=== PATIENT | male | born 1950 | race Caucasian/White ===

== ENCOUNTER → 2020-12-14 14:53 | Outpatient (BNVA) | payer MEDICARE, OTHER, SELFPAY | PROVIDERS: PCP Internal Medicine; Visit Provider Urology | DX: N40.1 Benign prostatic hyperplasia with lower urinary tract symptoms (principal); N39.43 Post-void dribbling; R31.29 Other microscopic hematuria | CPT/HCPCS: 51798; 99212 ==

== ENCOUNTER → 2021-12-13 09:26 | Outpatient (BNVA) | payer MEDICARE, OTHER, SELFPAY | PROVIDERS: PCP Internal Medicine; Visit Provider Urology | DX: N40.1 Benign prostatic hyperplasia with lower urinary tract symptoms (principal); R31.29 Other microscopic hematuria | CPT/HCPCS: 51798; 99212 ==

== ENCOUNTER 2022-09-19 08:43 | Outpatient (REF) | payer MEDICARE, OTHER, SELFPAY ==
--- NOTE | ~2022-09-19 | US_ITS ---
EXAMINATION: US RETROPERITONEAL LIMITED (RENAL ONLY) CLINICAL INFORMATION: Cyst of kidney, acquired. COMPARISON: None available. TECHNIQUE: Real-time imaging of the kidneys. FINDINGS: RIGHT KIDNEY: 11.5 x 6.6 x 6.2 cm (SAG x AP x TRV). The kidney is normal in size, contour, and echogenicity. Renal cortical thickness is normal. No calculi or focal parenchymal lesions. No hydronephrosis. LEFT KIDNEY: 12.7 x 6.1 x 5.1 cm (SAG x AP x TRV). The kidney is normal in size, contour, and echogenicity. Renal cortical thickness is normal. No calculi or focal parenchymal lesions. No hydronephrosis. US/US renal BI IMPRESSION: Normal renal ultrasound.
== END 2022-09-19 08:44 | disposition home or self-care (01) ==
LOC: HO.US 08:43
PROVIDERS: PCP Internal Medicine; Visit Provider Urology
DX: N28.1 Cyst of kidney, acquired (principal)
CPT/HCPCS: 76775

== ENCOUNTER 2022-09-26 08:44 | Outpatient (AMB) | payer MEDICARE, OTHER, SELFPAY ==
--- NOTE | 2022-09-26 08:45 | MHC.OFFVIS ---
Intake Intake Visit Reasons: 6M PVR/US(set) Intake Note: Patient is present for PVR Urology Med: Finasteride, Tamsulosin Antibiotic Allergy:None Blood Thinner: Xarelto [facility] PVR: 0 Allergies No Known Allergies Allergy (Verified 09/26/22 08:47) HPI HPI Comments History of Present Illness Details Ron is a very pleasant male. He is a patient of Dr Landrum. He is seen for the following urologic conditions. - microscopic hematuria - lower urinary tract symptoms - erectile dysfunction UA today negative PVR 0 On Xarelto Happy with current emptying Discussed imaging results with hepatic steatosis Erectile dysfunction Progressive No prior medications Trial on demand tadalafil Lower urinary tract symptoms Weakness of stream with nocturia Current therapy includes combination therapy with finasteride and tamsulosin Current voiding parameters very happy with emptying PSA followed through PCP - 0.4 Microscopic Hematuria:? Substantially improved voiding parameters ?Decreased nocturia ? Microscopic hematuria was diagnosed during?routine UA.? They are here for the?Follow-up evaluation.? Since the last visit the patient has?has not noticed gross hematuria, continues to test postive for microscopic hematuria.? Relevant medical history for?tobacco use, no workplace exposures.? Radiographic imaging:?03/03 , CT IVP - NAD.? Other investigations?03/03 , cytology, normal.? Cystoscopy findings?normal.? Therapeutic plan?6 months with voiding parameters.? [facility] Medical History Benign prostatic hyperplasia with lower urinary tract symptoms Diverticulitis HTN (hypertension) Microscopic hematuria Post-void dribbling Review of Systems Const Denies chills and Denies fever(s) Card Reports no additional complaints and Denies syncope Resp Denies cough GI Denies abdominal pain and Denies heartburn Reports as per HPI and Denies change in libido Neuro Denies syncope Psych Denies change in libido Endo Denies change in libido Physical Exam Const General: cooperative, healthy appearing, comfortable and no acute distress Orientation/consciousness: patient oriented x3 HEENT Face and sinus: Yes normal facial exam Mouth: moist mucous membranes Neck Neck: Yes normal visual inspection, Yes full ROM and Yes trachea midline Chest Chest palpation & inspection: normal inspection of the chest Resp Effort & Inspection: normal respiratory effort, able to speak in complete sentences and no respiratory distress GI Inspection: Yes normal to inspection Back/Spine/Pelvis Cervical Spine: normal cervical lordosis Thoracic/Lumbar Spine: thoracic and lumbar spine normal to inspection Skin General skin exam: no rashes or lesions noted Neuro General: patient oriented x3, gait normal, tone normal and moves all extremities Extrem General: Yes normal to inspection and Yes capillary refill normal Office Procedures Post Void Residual Post Residual Void Post Void Residual (PVR): 0 10130-Huqb Void Residual by ultrasound Results AMB Urinalysis, Automated UA Leukoctes 0 Rebecca/uL Last Edit by Suzie Leonardo [facility] on 09/26/22 08:53 UA Nitrite Negative Last Edit by Suzie Leonardo [facility] on 09/26/22 08:53 UA Urobilinogen 0.2 mg/dL Last Edit by Suzie Leonardo [facility] on 09/26/22 08:53 UA Protein 15 mg/dL Last Edit by Suzie Leonardo [facility] on 09/26/22 08:53 UA pH 5.5 Last Edit by Suzie Leonardo [facility] on 09/26/22 08:53 UA Blood 0 Dannie/uL Last Edit by Suzie Leonardo [facility] on 09/26/22 08:53 UA Specific [place] 1.030 Last Edit by Suzie Leonardo [facility] on 09/26/22 08:53 UA Ketone Negative Last Edit by Suzie Leonardo [facility] on 09/26/22 08:53 UA Bilirubin 0 mg/dL Last Edit by Suzie Leonardo [facility] on 09/26/22 08:53 UA Glucose 0 mg/dL Last Edit by Suzie Leonardo [facility] on 09/26/22 08:53 Results Reviewed Results Reviewed: Laboratory Last Values Urine pH (Auto) 5.5 09/26/22 08:48 Specific [place] (Auto) 1.030 09/26/22 08:48 Urine Protein (Auto) 15 mg/dL 09/26/22 08:48 Glucose (UA)(Auto) 0 mg/dL 09/26/22 08:48 Urine Ketones (Auto) Negative 09/26/22 08:48 Urine Blood (Auto) 0 Dannie/uL 09/26/22 08:48 Urine Nitrite (Auto) Negative 09/26/22 08:48 Urine Bilirubin (Auto) 0 mg/dL 09/26/22 08:48 Urine Urobilinogen (Auto) 0.2 mg/dL 09/26/22 08:48 Leukocyte Esterase (Auto) 0 Rebecca/uL 09/26/22 08:48 Assessment & Plan Assessment & Plan (1) Erectile dysfunction due to arterial insufficiency: Code(s): N52.01 - Erectile dysfunction due to arterial insufficiency (2) Microscopic hematuria: Code(s): R31.29 - Other microscopic hematuria (3) Benign prostatic hyperplasia with lower urinary tract symptoms: Code(s): N40.1 - Benign prostatic hyperplasia with lower urinary tract symptoms Plan Trial tadalafil Three month follow-up tele visit Orders: Orders AMB Urinalysis Automated Today Z13.9 - Encounter for screening, unspecified AMB Post Void Residual by ultrasound Today N40.1 - Benign prostatic hyperplasia with lower urinary tract symptoms Medications: New tadalafil Take on as needed basis 20 mg PO ONCE PRN 30 tabs 0RF sexual activity 30 days N52.01 - Erectile dysfunction due to arterial insufficiency Patient Instructions: Imaging studies, laboratory and physical exam results were discussed and reviewed in detail. No major barriers to patient understanding were identified. An opportunity to ask questions regarding the treatment plan was provided. All questions were answered. The patient expressed understanding and agreement with the above treatment plan. The patient is aware they should contact our office by phone for worsening of their current condition or the appearance of new urologic symptoms. Compliance is encouraged with any medications and followup testing that is ordered. It is a privilege to participate in the urologic care of your patient. If you have any questions or concerns regarding treatment for the above conditions, or other urologic issues, please do not hesitate to contact me. The office telephone contact is [phone]. This note is constructed using voice recognition software. While every effort has been made to ensure accuracy sample checker errors may have been included. Yours sincerely, Dr Aneesh Vivar MD, [facility] - Urology Providers of Expert, Compassionate Care for the Genitourinary System Coding Level of Care Code Est Pt Level 4 (17458) Diagnoses Erectile dysfunction due to arterial insufficiency N52.01 Microscopic hematuria R31.29 Benign prostatic hyperplasia with lower urinary tract symptoms N40.1 CPT Codes Post Residual Void - PVR CPT Code: 42597-Nbqk Void Residual by ultrasound ([id number])
== END 2022-09-26 09:13 | disposition home or self-care (01) ==
PROVIDERS: Visit Provider Urology
DX: N52.01 Erectile dysfunction due to arterial insufficiency (principal); R31.29 Other microscopic hematuria; N40.1 Benign prostatic hyperplasia with lower urinary tract symptoms
CPT/HCPCS: 99214

== ENCOUNTER → 2022-09-26 08:44 | Outpatient (BNVA) | payer MEDICARE, OTHER, SELFPAY | PROVIDERS: Visit Provider Urology | DX: R31.29 Other microscopic hematuria (principal); N40.1 Benign prostatic hyperplasia with lower urinary tract symptoms; R39.12 Poor urinary stream; R35.1 Nocturia; N52.01 Erectile dysfunction due to arterial insufficiency | CPT/HCPCS: 51798; 81003; 99212 ==

== ENCOUNTER 2022-12-29 08:04 | Outpatient (AMB) | payer MEDICARE, OTHER, SELFPAY ==
--- NOTE | 2022-12-29 08:55 | MHC.OFFVIS ---
Intake Intake Visit Reasons: BPH with lower urinary tract symptoms- follow up Intake Note: Patient is Present for Telephone Follow Up For Urology Med: Finasteride, Tadalafil, Tamsulosin Antibiotic Allergy: None Blood Thinner: Xarelto Allergies No Known Allergies Allergy (Verified 12/29/22 08:56) HPI HPI Comments History of Present Illness Details Ron is a very pleasant male. He is a patient of Dr Landrum. He is seen for the following urologic conditions. - microscopic hematuria - lower urinary tract symptoms - erectile dysfunction Telemedicine Evaluation 15 min Consultation 3VR Vinicio Video attempted ED follow-up - moderate benefit Tadalafil trial daily with on demand Erectile dysfunction Progressive No prior medications Trial on demand tadalafil Lower urinary tract symptoms Weakness of stream with nocturia Current therapy includes combination therapy with finasteride and tamsulosin Current voiding parameters very happy with emptying PSA followed through PCP - 0.4 Microscopic Hematuria:? Substantially improved voiding parameters ?Decreased nocturia ? Microscopic hematuria was diagnosed during?routine UA.? They are here for the?Follow-up evaluation.? Since the last visit the patient has?has not noticed gross hematuria, continues to test postive for microscopic hematuria.? Relevant medical history for?tobacco use, no workplace exposures.? Radiographic imaging:?03/03 , CT IVP - NAD.? Other investigations?03/03 , cytology, normal.? Cystoscopy findings?normal [facility] Medical History HTN (hypertension) Diverticulitis Microscopic hematuria Benign prostatic hyperplasia with lower urinary tract symptoms Post-void dribbling Review of Systems Const All systems reviewed & are unremarkable except as noted in HPI and below Reports no additional complaints Resp Reports no additional complaints GI Reports no additional complaints Reports as per HPI Musc Reports no additional complaints Physical Exam Telemedicine evaluation Appropriate responses Regular breathing rate and rhythm HEENT Head: Yes normal to inspection Ears: hearing grossly normal bilaterally Eyes General: appearance normal, both eyes and all related structures Neck Neck: Yes normal visual inspection Chest Chest palpation & inspection: normal inspection of the chest Resp Effort & Inspection: normal respiratory effort and able to speak in complete sentences Assessment & Plan Assessment & Plan (1) Erectile dysfunction due to arterial insufficiency: Code(s): N52.01 - Erectile dysfunction due to arterial insufficiency (2) Benign prostatic hyperplasia with lower urinary tract symptoms: Code(s): N40.1 - Benign prostatic hyperplasia with lower urinary tract symptoms Plan Trial daily with on demand Medications: New tadalafil 5 mg PO DAILY 90 days 90 tabs 0RF sexual activity E11.69 - Type 2 diabetes mellitus with other specified complication, N52.1 - Erectile dysfunction due to diseases classified elsewhere Refilled tadalafil Take on as needed basis 20 mg PO ONCE 30 days PRN 30 tabs 0RF sexual activity N52.01 - Erectile dysfunction due to arterial insufficiency Patient Instructions: Imaging studies, laboratory and physical exam results were discussed and reviewed in detail. No major barriers to patient understanding were identified. An opportunity to ask questions regarding the treatment plan was provided. All questions were answered. The patient expressed understanding and agreement with the above treatment plan. The patient is aware they should contact our office by phone for worsening of their current condition or the appearance of new urologic symptoms. Compliance is encouraged with any medications and followup testing that is ordered. It is a privilege to participate in the urologic care of your patient. If you have any questions or concerns regarding treatment for the above conditions, or other urologic issues, please do not hesitate to contact me. The office telephone contact is [phone]. This note is constructed using voice recognition software. While every effort has been made to ensure accuracy physical medicine specialist errors may have been included. Yours sincerely, Dr Aneesh Vivar MD, [facility] - Urology Providers of Expert, Compassionate Care for the Genitourinary System Telehealth Telehealth Location of provider rendering services: practice address Location of patient: address on file Patient Identification confirmed using: Name, : Yes Telehealth method: video Patient verbally consented to treatment: Yes Patient verbally consented to billing insurance company: Yes Patient informed of any privacy concerns related to visit: Yes Coding Level of Care Code Tele Est Pt Level 3 (85868) Diagnoses Erectile dysfunction due to arterial insufficiency N52.01 Benign prostatic hyperplasia with lower urinary tract symptoms N40.1
== END 2022-12-29 10:57 | disposition home or self-care (01) ==
LOC: HO.HUSH 08:04
PROVIDERS: PCP Internal Medicine; Visit Provider Urology
DX: N52.01 Erectile dysfunction due to arterial insufficiency (principal); N40.1 Benign prostatic hyperplasia with lower urinary tract symptoms
CPT/HCPCS: 99213

== ENCOUNTER → 2022-12-29 08:04 | Outpatient (BNVA) | payer MEDICARE, OTHER, SELFPAY | PROVIDERS: PCP Internal Medicine; Visit Provider Urology ==

== ENCOUNTER 2023-04-11 09:32 | Outpatient (AMB) | payer MEDICARE, OTHER, SELFPAY ==
--- NOTE | 2023-04-11 09:33 | A.OFFVIS_ITS ---
Intake Intake Visit Reasons: Med Review(Tadalafil)VM to confirm Intake Note: Patient presents today for a telehealth follow-up Meds- Tadalafil, Tamsulosin, Finasteride Allergies to Antibiotic- No Known Allergies Blood Thinner- None Education Dean Required: No Allergies No Known Allergies Allergy (Verified 04/11/23 09:35) Medication List - Last Reconciled 04/11/23 by Aneesh Vivar MD atorvastatin 10 mg PO DAILY finasteride 5 mg PO DAILY 90 days fluorouracil 5% appl topical DAILY metoprolol succinate ER 100 mg PO DAILY rivaroxaban (Xarelto) 2.5 mg PO BID rivaroxaban (Xarelto) 20 mg PO DAILY tadalafil 20 mg PO ONCE PRN 30 days tadalafil 5 mg PO DAILY 90 days tamsulosin 0.4 mg PO DAILY HPI HPI Comments History of Present Illness Details Ron is a very pleasant male. He is a patient of Dr Landrum. He is seen for the following urologic conditions. - microscopic hematuria - lower urinary tract symptoms - erectile dysfunction Telemedicine Evaluation 15 min Consultation Doximity Vinicio Video attempted ED follow-up - moderate benefit with daily tadalafil on on demand May increase on demand to 30 mg of 40 mg Six-month follow-up Erectile dysfunction Progressive No prior medications Trial daily tadalafil Lower urinary tract symptoms Weakness of stream with nocturia Current therapy includes combination therapy with finasteride and tamsulosin Current voiding parameters very happy with emptying PSA followed through PCP - 0.4 Microscopic Hematuria:? Substantially improved voiding parameters ?Decreased nocturia ? Microscopic hematuria was diagnosed during?routine UA.? They are here for the?Follow-up evaluation.? Since the last visit the patient has?has not noticed gross hematuria, continues to test positive for microscopic hematuria.? Relevant medical history for?tobacco use, no workplace exposures.? Radiographic imaging:?1/20 , CT IVP - NAD.? Other investigations?03/03 , cytology, normal.? Cystoscopy findings?normal [facility] Medical History HTN (hypertension) Diverticulitis Microscopic hematuria Benign prostatic hyperplasia with lower urinary tract symptoms Post-void dribbling Review of Systems Const All systems reviewed & are unremarkable except as noted in HPI and below Reports no additional complaints Resp Reports no additional complaints GI Reports no additional complaints Reports as per HPI Musc Reports no additional complaints Physical Exam Telemedicine evaluation Appropriate responses Regular breathing rate and rhythm HEENT Head: Yes normal to inspection Ears: hearing grossly normal bilaterally Eyes General: appearance normal, both eyes and all related structures Neck Neck: Yes normal visual inspection Chest Chest palpation & inspection: normal inspection of the chest Resp Effort & Inspection: normal respiratory effort and able to speak in complete sentences Assessment & Plan Assessment & Plan (1) Erectile dysfunction due to arterial insufficiency: Code(s): N52.01 - Erectile dysfunction due to arterial insufficiency Plan Trial high dose on demand Medications: Refilled tadalafil Take on as needed basis 20 mg PO ONCE PRN 30 tabs 1RF sexual activity 30 days N52.01 - Erectile dysfunction due to arterial insufficiency tadalafil 5 mg PO DAILY 90 tabs 1RF sexual activity 90 days N52.01 - Erectile dysfunction due to arterial insufficiency Patient Instructions: Imaging studies, laboratory and physical exam results were discussed and reviewed in detail. No major barriers to patient understanding were identified. An opportunity to ask questions regarding the treatment plan was provided. All questions were answered. The patient expressed understanding and agreement with the above treatment plan. The patient is aware they should contact our office by phone for worsening of their current condition or the appearance of new urologic symptoms. Compliance is encouraged with any medications and followup testing that is ordered. It is a privilege to participate in the urologic care of your patient. If you have any questions or concerns regarding treatment for the above conditions, or other urologic issues, please do not hesitate to contact me. The office telep aylin contact is [phone]. This note is constructed using voice recognition software. While every effort has been made to ensure accuracy used equipment sales representative errors may have been included. Yours sincerely, Dr Aneesh Vivar MD, [facility] - Urology Providers of Expert, Compassionate Care for the Genitourinary System Telehealth Telehealth Location of provider rendering services: practice address Location of patient: address on file Patient Identification confirmed using: Name, : Yes Telehealth method: video Patient verbally consented to treatment: Yes Patient verbally consented to billing insurance company: Yes Patient informed of any privacy concerns related to visit: Yes Coding Level of Care Code Tele Est Pt Level 4 (83099) Diagnoses Erectile dysfunction due to arterial insufficiency N52.01
== END 2023-04-11 09:58 | disposition home or self-care (01) ==
LOC: HO.HUSH 09:33
PROVIDERS: PCP Internal Medicine; Visit Provider Urology
DX: N52.01 Erectile dysfunction due to arterial insufficiency (principal)
CPT/HCPCS: 99213

== ENCOUNTER → 2023-04-11 09:32 | Outpatient (BNVA) | payer MEDICARE, OTHER, SELFPAY | PROVIDERS: PCP Internal Medicine; Visit Provider Urology ==

== ENCOUNTER 2023-10-12 09:36 | Outpatient (AMB) | payer MEDICARE, OTHER, SELFPAY ==
--- NOTE | 2023-10-12 10:08 | MHC.OFFVIS ---
Intake Visit Reasons: 6m follow up Intake Note: Patient is Present for PVR Urology Med: Finasteride, Tadalafil, Tamsulosin Antibiotic Allergy: None Blood Thinner: Xarelto Last PVR: 0mls Todays PVR:0 Environmental Services Manager Required: No Accompanied by: Self / Same As Patient Allergies No Known Allergies Allergy (Verified 10/12/23 10:10) Medication List - Last Reconciled 10/12/23 by Aneesh Vivar MD atorvastatin 10 mg PO DAILY finasteride 5 mg PO DAILY 90 days fluorouracil 5% appl topical DAILY metoprolol succinate ER 100 mg PO DAILY rivaroxaban (Xarelto) 2.5 mg PO BID rivaroxaban (Xarelto) 20 mg PO DAILY tadalafil 20 mg PO ONCE PRN 30 days tadalafil 5 mg PO DAILY 90 days tamsulosin 0.4 mg PO DAILY HPI Comments Details: Ron is a very pleasant male. He is a patient of Dr Landrum. He is seen for the following urologic conditions. - microscopic hematuria - lower urinary tract symptoms - erectile dysfunction Six-month follow-up ED follow-up - using on demand 30-40 mg tadalafil +daily 5 mg Still with good response We will cut finasteride back to every other day since PSA low Six-month follow-up tele Erectile dysfunction Progressive No prior medications Trial daily tadalafil Lower urinary tract symptoms Weakness of stream with nocturia Current therapy includes combination therapy with finasteride and tamsulosin Current voiding parameters very happy with emptying PSA followed through PCP - 0.4 Microscopic Hematuria:? Substantially improved voiding parameters ?Decreased nocturia ? Microscopic hematuria was diagnosed during?routine UA.? They are here for the?Follow-up evaluation.? Since the last visit the patient has?has not noticed gross hematuria, continues to test positive for microscopic hematuria.? Relevant medical history for?tobacco use, no workplace exposures.? Radiographic imaging:?03/03 , CT IVP - NAD.? Other investigations?03/03 , cytology, normal.? Cystoscopy findings?normal [facility] Medical History HTN (hypertension) Diverticulitis Microscopic hematuria Benign prostatic hyperplasia with lower urinary tract symptoms Post-void dribbling Review of Systems Const Denies chills and Denies fever(s) Card Reports no additional complaints and Denies syncope Resp Denies cough GI Denies abdominal pain and Denies heartburn Reports as per HPI and Denies change in libido Neuro Denies syncope Psych Denies change in libido Endo Denies change in libido Physical Exam Const General: cooperative, healthy appearing, comfortable and no acute distress Orientation/consciousness: patient oriented x3 HEENT Face and sinus: Yes normal facial exam Mouth: moist mucous membranes Neck Neck: Yes normal visual inspection, Yes full ROM and Yes trachea midline Chest Chest palpation & inspection: normal inspection of the chest Resp Effort & Inspection: normal respiratory effort, able to speak in complete sentences and no respiratory distress GI Inspection: Yes normal to inspection Back/Spine/Pelvis Cervical Spine: normal cervical lordosis Thoracic/Lumbar Spine: thoracic and lumbar spine normal to inspection Skin General skin exam: no rashes or lesions noted Neuro General: patient oriented x3, gait normal, tone normal and moves all extremities Extrem General: Yes normal to inspection and Yes capillary refill normal Office Procedures Post Void Residual Post Residual Void Post Void Residual (PVR): 0 [id number]-Pawp Void Residual by ultrasound Assessment & Plan Assessment & Plan (1) Benign prostatic hyperplasia with lower urinary tract symptoms: Code(s): N40.1 - Benign prostatic hyperplasia with lower urinary tract symptoms Category: Medical (2) Erectile dysfunction due to arterial insufficiency: Code(s): N52.01 - Erectile dysfunction due to arterial insufficiency Category: Medical Plan Refill tadalafil. Change pharmacy. Add coupon. Six-month follow-up Orders: Orders AMB Post Void Residual by ultrasound Today N40.1 - Benign prostatic hyperplasia with lower urinary tract symptoms Medications: Refilled tadalafil 5 mg PO DAILY 90 days 90 tabs 1RF sexual activity N52.01 - Erectile dysfunction due to arterial insufficiency tadalafil Take on as needed basis 20 mg PO ONCE 30 days PRN 30 tabs 1RF sexual activity N52.01 - Erectile dysfunction due to arterial insufficiency Patient Instructions: Imaging studies, laboratory and physical exam results were discussed and reviewed in detail. No major barriers to patient understanding were identified. An opportunity to ask questions regarding the treatment plan was provided. All questions were answered. The patient expressed understanding and agreement with the above treatment plan. The patient is aware they should contact our office by phone for worsening of their current condition or the appearance of new urologic symptoms. Compliance is encouraged with any medications and followup testing that is ordered. It is a privilege to participate in the urologic care of your patient. If you have any questions or concerns regarding treatment for the above conditions, or other urologic issues, please do not hesitate to contact me. The office telephone contact is [phone]. This note is constructed using voice recognition software. While every effort has been made to ensure accuracy dependency case manager errors may have been included. Yours sincerely, Dr Aneesh Vivar MD, [facility] - Urology Providers of Expert, Compassionate Care for the Genitourinary System Coding Level of Care Code Est Pt Level 4 (29828) Diagnoses Benign prostatic hyperplasia with lower urinary tract symptoms N40.1 Erectile dysfunction due to arterial insufficiency N52.01 CPT Codes Post Residual Void - PVR CPT Code: 37797-Qpks Void Residual by ultrasound ([id number])
== END 2023-10-12 10:33 | disposition home or self-care (01) ==
PROVIDERS: PCP Internal Medicine; Visit Provider Urology
DX: N40.1 Benign prostatic hyperplasia with lower urinary tract symptoms (principal); N52.01 Erectile dysfunction due to arterial insufficiency
CPT/HCPCS: 99214

== ENCOUNTER → 2023-10-12 09:36 | Outpatient (BNVA) | payer MEDICARE, OTHER, SELFPAY | PROVIDERS: PCP Internal Medicine; Visit Provider Urology | DX: N40.1 Benign prostatic hyperplasia with lower urinary tract symptoms (principal); N52.01 Erectile dysfunction due to arterial insufficiency; Z79.01 Long term (current) use of anticoagulants; Z79.899 Other long term (current) drug therapy | CPT/HCPCS: 51798; 99212 ==

== ENCOUNTER 2024-05-27 09:34 | Outpatient (AMB) | payer MEDICARE, OTHER, SELFPAY ==
--- NOTE | 2024-05-27 09:38 | MHC.OFFVIS ---
Intake Visit Reasons: 6m/PVR Intake Note: Patient is present for 6M/PVR Urology Medication:FINASTERIDE,TADALAFIL Antibiotic Allergy:NONE Blood Thinner:[employer]IV[employer]OX[employer] Professor Required: No Allergies No Known Allergies Allergy (Verified 05/27/24 09:39) HPI Comments Details: Ron is a very pleasant male. He is a patient of Dr Landrum. He is seen for the following urologic conditions. - microscopic hematuria - lower urinary tract symptoms - erectile dysfunction - bladder instability Telemedicine Evaluation 15 min Consultation [id number] Video Six-month follow-up ED follow-up - using on demand 30-40 mg tadalafil +daily 5 mg We will cut finasteride back to every other day since PSA low Bladder instability unsense leakage - trial oxybutynin Erectile dysfunction Progressive No prior medications Daily tadalafil with on demand Lower urinary tract symptoms Weakness of stream with nocturia Current therapy includes combination therapy with finasteride and tamsulosin Current voiding parameters very happy with emptying PSA followed through PCP - 0.4 Microscopic Hematuria:? Substantially improved voiding parameters ?Decreased nocturia ? Microscopic hematuria was diagnosed during?routine UA.? They are here for the?Follow-up evaluation.? Since the last visit the patient has?has not noticed gross hematuria, continues to test positive for microscopic hematuria.? Relevant medical history for?tobacco use, no workplace exposures.? Radiographic imaging:?03/03 , CT IVP - NAD.? Other investigations?03/03 , cytology, normal.? Cystoscopy findings?normal [facility] Medical History HTN (hypertension) Diverticulitis Microscopic hematuria Benign prostatic hyperplasia with lower urinary tract symptoms Post-void dribbling Review of Systems Const All systems reviewed & are unremarkable except as noted in HPI and below Reports no additional complaints Resp Reports no additional complaints GI Reports no additional complaints Reports as per HPI Musc Reports no additional complaints Physical Exam Telemedicine evaluation Appropriate responses Regular breathing rate and rhythm HEENT Head: Yes normal to inspection Ears: hearing grossly normal bilaterally Eyes General: appearance normal, both eyes and all related structures Neck Neck: Yes normal visual inspection Chest Chest palpation & inspection: normal inspection of the chest Resp Effort & Inspection: normal respiratory effort and able to speak in complete sentences Telehealth Telehealth Location of provider rendering services: practice address Location of patient: address on file Patient Identification confirmed using: Name, : Yes Telehealth method: voice only Patient verbally consented to treatment: Yes Patient verbally consented to billing insurance company: Yes Patient informed of any privacy concerns related to visit: Yes Assessment & Plan Assessment & Plan (1) Bladder instability: Code(s): N32.89 - Other specified disorders of bladder Category: Medical Plan Bladder instability trial oxybutynin Medications: New oxybutynin chloride ER 5 mg PO DAILY 30 days 30 tabs 1RF N32.89 - Other specified disorders of bladder Refilled tadalafil 5 mg PO DAILY 90 days 90 tabs 1RF sexual activity N52.01 - Erectile dysfunction due to arterial insufficiency finasteride 5 mg PO DAILY 90 days 90 tabs 3RF N40.1 - Benign prostatic hyperplasia with lower urinary tract symptoms Patient Instructions: This note is constructed using voice recognition software. While every effort has been made to ensure accuracy production sanitizer errors may have been included. Imaging studies, laboratory and physical exam results were discussed and reviewed in detail. No major barriers to patient understanding were identified. An opportunity to ask questions regarding the treatment plan was provided. All questions were answered. The patient expressed understanding and agreement with the above treatment plan. The patient is aware they should contact our office by phone for worsening of their current condition or the appearance of new urologic symptoms. Compliance is encouraged with any medications and followup testing that is ordered. It is a privilege to participate in the urologic care of your patient. If you have any questions or concerns regarding treatment for the above conditions, or other urologic issues, please do not hesitate to contact me. The office telephone contact is [phone]. Sincerely, Dr Aneesh Vivar MD, [facility] - Urology Compassionate Specialist Care for the Genitourinary System Coding Level of Care Code Tele Est Pt Level 4 (88826) Complex EM visit Add On G2211 Diagnoses Bladder instability N32.89
--- OUTSIDE RECORDS SUMMARY | 2024-05-27 10:46 | XMS_ITS ---
Author Name [facility] Organization Unknown History of Medication Use Medication Directions Dispensed Refills Start Date End Date Stat Tamsulosin HCl 0.4 MG Oral Capsule Tamsulosin HCl 0.4 MG Oral Capsule QTY: 90 capsule Days: 90 Refills: 0 Written: 09/28/22 Patient Instructions: 09/28/2022 active Problems Problem Status Onset Date Problem Type Date of Resoluti on Source Cardiac pacemaker re-entrant tachycardia (disorder) active 2023-01-11 ProblemAct [facility] Hyperlipidemia (disorder) active [facility]Act [facility] Benign prostatic hyperplasia (disorder) active [facility]Act [facility] Atrial fibrillation (disorder) active 2023-01-11 [facility]Act [facility] Hypertensive disorder, systemic arterial (disorder) active [facility]Act [facility] Diverticulitis of colon (disorder) active 2023-01-11 ProblemAct [facility] Organic sleep apnea (disorder) active 2023-01-11 ProblemAct [facility] Heart disease (disorder) active 2023-01-11 ProblemAct [facility] Encounters Encounter Type Encounter Reason Primary Diagnosis Location Date [facility] 01/11/2023 Care Team Organization Name Specialty Phone Email Start Date End [facility]
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
--- OUTSIDE RECORDS SUMMARY | 2024-05-27 10:46 | XMS_ITS | Clinical Summary ---
Author Organization [facility] Address [address] [place] [address] Care Team Providers Care Spinning Machine Operator Name Role Phone Luigi Landrum MD Primary Care Provider + [phone] Allergies No known active allergies Medications Medication Sig Dispensed Refills Start Date End Date Status Metoprolol Succinate 100 MG CS24 Take 100 mg by mouth daily. 0 Active rivaroxaban (XARELTO) 20 MG TABS tablet Take 1 tablet (20 mg total) by mouth daily. 0 Active atorvastatin (LIPITOR) tablet 10 mg Take 1 tablet (10 mg total) by mouth every other day. 0 Active Multiple Vitamins-Minerals (MULTIVITAMIN ADULT PO) Take by mouth daily. 0 Active cholecalciferol (VITAMIN D3) 1000 units tablet Take 1 tablet (1,000 Units total) by mouth daily. 0 Active B Complex Vitamins (VITAMIN B COMPLEX PO) Take by mouth daily. 0 Active Probiotic Product (PROBIOTIC-10 PO) Take by mouth daily. 0 Active finasteride (PROSCAR) 5 MG tablet Take 1 tablet (5 mg total) by mouth daily. 0 Active tamsulosin (FLOMAX) 0.4 MG CAPS Take 1 capsule (0.4 mg total) by mouth daily. 0 Active Active Problems Problem Noted Date Diagnosed Date Splenomegaly 02/16/2022 Chronic ITP (idiopathic thrombocytopenia) 2021 Permanent atrial fibrillation 01/25/2022 Pacemaker 01/25/2022 Social History Tobacco Use Types Packs/Day Years Used Date Smoking Tobacco: Never Smokeless Tobacco: Never Tobacco Cessation:Counseling Given: Not Answered Alcohol Use Standard Drinks/Week Comments Yes 0 (1 standard drink = 0.6 oz pur e alcohol) Sex and Gender Information Value Date Recorded Sex Assigned at Not on file Gender Identity Not on file Sexual Orientation Not on file Job Start Date Occupation Industry Not on file Not on file Not on file Last Filed Vital Signs Vital Sign Reading Time Taken Comments Blood Pressure 150/88 01/25/2022 2:02 PM EST Pulse 71 01/25/2022 2:02 PM EST Temperature 36.6 ??C (97.8 ??F) 01/25/2022 2:02 PM ES T Respiratory Rate - - Oxygen Saturation 96% 01/25/2022 2:02 PM EST Inhaled Oxygen Concentration - - Weight 115.1 kg (253 lb 12.8 oz) 01/25/2022 2:02 PM EST Height 177.8 cm (5' 10 ) 01/25/2022 2:02 PM EST Body Mass Index 36.42 01/25/2022 2:02 PM EST Plan of Treatment Health Maintenance Due Date Last Done Comments Hepatitis C Screening 1950 COVID-19 Vaccine (#1) 1950 Depression Screening 1961 Preventative Health Evaluation 05/29/1967 DTap / Tdap / Td (1 - Tdap) 1968 Colon Cancer Screening (Colonoscopy) 1994 Shingrix-Zoster Vaccine (1 o f 2) 05/29/1999 Hepatitis B Vaccines (3 of 3 - 19+ 3-dose series) 06/25/2007 02/06/2007, 12/25/2006 Fall Risk Assessment 2014 Pneumococcal Vaccine (1 of 1 - PCV) 2014 Influenza Vaccine (#1) 2023 12/27/2015 RSV Adult > 60+ Yrs or (1 - 1-dose 75+ series) 2024 RSV Ped < 20 months Aged Out No longe r eligible based on patient's age to complete this topic Care Teams Spinning Machine Operator Relationship Specialty Start Date End Date Luigi Landrum MD [address] [place] [id number] PCP - General Internal Medicine 07/19/18
== END 2024-05-27 10:12 | disposition home or self-care (01) ==
LOC: HO.HUSH 09:34
PROVIDERS: PCP Internal Medicine; Visit Provider Urology
DX: N32.89 Other specified disorders of bladder (principal)
CPT/HCPCS: 99214; G2211

== ENCOUNTER → 2024-05-27 09:34 | Outpatient (BNVA) | payer MEDICARE, OTHER, SELFPAY | PROVIDERS: PCP Internal Medicine; Visit Provider Urology ==

== ENCOUNTER 2024-07-24 09:52 | Outpatient (AMB) | payer MEDICARE, OTHER, SELFPAY ==
--- NOTE | 2024-07-24 10:09 | A.OFFVIS_ITS ---
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 He is a patient of Dr Landrum. He is seen for the following urologic conditions. - microscopic hematuria - lower urinary tract symptoms - erectile dysfunction - bladder instability 2 month follow-up from trial of oxybutynin Good response with control of urge We will switch to alternate anticholinergic since Twin is older than 65 per Beer's Criteria Six-month follow-up ED follow-up - using on demand 30-40 mg tadalafil +daily 5 mg Finasteride back to every other day since PSA low Erectile dysfunction Progressive No prior medications Daily tadalafil with on demand Lower urinary tract symptoms Weakness of stream with nocturia Current therapy includes combination therapy with finasteride and tamsulosin Current voiding parameters very happy with emptying PSA followed through PCP - 0.4 Urinary urgency Microscopic Hematuria:? Substantially improved voiding parameters ?Decreased nocturia ? Microscopic hematuria was diagnosed during?routine UA.? They are here for the?Follow-up evaluation.? Since the last visit the patient has?has not noticed gross hematuria, continues to test positive for microscopic hematuria.? Relevant medical history for?tobacco use, no workplace exposures.? Radiographic imaging:?03/03 , CT IVP - NAD.? Other investigations?03/03 , cytology, normal.? Cystoscopy findings?normal [facility] Medical History HTN (hypertension) Diverticulitis Microscopic hematuria Benign prostatic hyperplasia with lower urinary tract symptoms Post-void dribbling Review of Systems Const Denies chills and Denies fever(s) Card Reports no additional complaints and Denies syncope Resp Denies cough GI Denies abdominal pain and Denies heartburn Reports as per HPI and Denies change in libido Neuro Denies syncope Psych Denies change in libido Endo Denies change in libido Physical Exam Const General: cooperative, healthy appearing, comfortable and no acute distress Orientation/consciousness: patient oriented x3 HEENT Face and sinus: Yes normal facial exam Mouth: moist mucous membranes Neck Neck: Yes normal visual inspection, Yes full ROM and Yes trachea midline Chest Chest palpation & inspection: normal inspection of the chest Resp Effort & Inspection: normal respiratory effort, able to speak in complete sentences and no respiratory distress GI Inspection: Yes normal to inspection Back/Spine/Pelvis Cervical Spine: normal cervical lordosis Thoracic/Lumbar Spine: thoracic and lumbar spine normal to inspection Skin General skin exam: no rashes or lesions noted Neuro General: patient oriented x3, gait normal, tone normal and moves all extremities Extrem General: Yes normal to inspection and Yes capillary refill normal Office Procedures Post Void Residual Post Residual Void Post Void Residual (PVR): 0 [id number] Void Residual by ultrasound Assessment & Plan Assessment & Plan (1) Benign prostatic hyperplasia with lower urinary tract symptoms: Code(s): N40.1 - Benign prostatic hyperplasia with lower urinary tract symptoms Category: Medical (2) Erectile dysfunction due to arterial insufficiency: Code(s): N52.01 - Erectile dysfunction due to arterial insufficiency Category: Medical (3) Bladder instability: Code(s): N32.89 - Other specified disorders of bladder Category: Medical Plan Six-month follow-up PVR Medications: New solifenacin 5 mg PO DAILY 90 days 90 tabs 1RF N32.89 - Other specified disorders of bladder Discontinued oxybutynin chloride ER Discontinued Reason: Patient Completed Course 5 mg PO DAILY 30 days 30 tabs 1RF N32.89 - Other specified disorders of bladder Patient Instructions: This note is constructed using voice recognition software. While every effort has been made to ensure accuracy manager in training errors may have been included. Imaging studies, laboratory and physical exam results were discussed and reviewed in detail. No major barriers to patient understanding were identified. An opportunity to ask questions regarding the treatment plan was provided. All questions were answered. The patient expressed understanding and agreement with the above treatment plan. The patient is aware they should contact our office by phone for worsening of their current condition or the appearance of new urologic symptoms. Compliance is encouraged with any medications and followup testing that is ordered. It is a privilege to participate in the urologic care of your patient. If you have any questions or concerns regarding treatment for the above conditions, or other urologic issues, please do not hesitate to contact me. The office telephone contact is [phone]. Sincerely, Dr Aneesh Vivar MD, [facility] - Urology Compassionate Specialist Care for the Genitourinary System Coding Level of Care Code Est Pt Level 4 (42649) Diagnoses Benign prostatic hyperplasia with lower urinary tract symptoms N40.1 Erectile dysfunction due to arterial insufficiency N52.01 Bladder instability N32.89 CPT Codes Post Residual Void - PVR CPT Code: 58377-Ekjw Void Residual by ultrasound ([id number])
== END 2024-07-24 10:31 | disposition home or self-care (01) ==
LOC: HO.HUSH 09:53
PROVIDERS: PCP Internal Medicine; Visit Provider Urology
DX: N40.1 Benign prostatic hyperplasia with lower urinary tract symptoms (principal); N52.01 Erectile dysfunction due to arterial insufficiency; N32.89 Other specified disorders of bladder
CPT/HCPCS: 99214

== ENCOUNTER → 2024-07-24 09:52 | Outpatient (BNVA) | payer MEDICARE, OTHER, SELFPAY | PROVIDERS: PCP Internal Medicine; Visit Provider Urology | DX: N40.1 Benign prostatic hyperplasia with lower urinary tract symptoms (principal); N32.89 Other specified disorders of bladder; N52.01 Erectile dysfunction due to arterial insufficiency | CPT/HCPCS: 51798; 99212 ==

== ENCOUNTER 2025-01-23 09:07 | Outpatient (AMB) | payer MEDICARE, OTHER, SELFPAY ==
--- NOTE | 2025-01-23 09:10 | A.OFFVIS_ITS ---
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 He is a patient of Dr Landrum. He is seen for the following urologic conditions. - microscopic hematuria - lower urinary tract symptoms - erectile dysfunction - bladder instability Bladder stability solifenacin, had good initial response to oxybutynin ED follow-up - using on demand 30-40 mg tadalafil +daily 5 mg Finasteride back to every other day since PSA low Erectile dysfunction Progressive No prior medications Daily tadalafil with on demand Lower urinary tract symptoms Weakness of stream with nocturia Current therapy includes combination therapy with finasteride and tamsulosin Current voiding parameters very happy with emptying PSA followed through PCP - 0.4 Urinary urgency Microscopic Hematuria:? Substantially improved voiding parameters ?Decreased nocturia ? Microscopic hematuria was diagnosed during?routine UA.? They are here for the?Follow-up evaluation.? Since the last visit the patient has?has not noticed gross hematuria, continues to test positive for microscopic hematuria.? Relevant medical history for?tobacco use, no workplace exposures.? Radiographic imaging:?03/03 , CT IVP - NAD.? Other investigations?03/03 , cytology, normal.? Cystoscopy findings?normal [facility] Medical History HTN (hypertension) Diverticulitis Microscopic hematuria Benign prostatic hyperplasia with lower urinary tract symptoms Post-void dribbling Office Procedures Post Void Residual Post Residual Void Post Void Residual (PVR): 17 [id number] Void Residual by ultrasound Results AMB Urinalysis, Automated UA Leukoctes 0 Rebecca/uL Last Edit by GABBY Wilkins on 01/23/25 09:21 UA Nitrite Negative Last Edit by Suzie Leonardo, RMA on 01/23/25 09:21 UA Urobilinogen 0.2 mg/dL Last Edit by Suzie Leonardo, RMA on 01/23/25 09:2 1 UA Protein 0 mg/dL Last Edit by Suzie Leonardo, RMA on 01/23/25 09:21 UA pH 7.0 Last Edit by Suzie Leonardo, RMA on 01/23/25 09:21 UA Blood 0 Dannie/uL Last Edit by Suzie Leonardo, RMA on 01/23/25 09:21 UA Specific [place] 1.015 Last Edit by Suzie Leonardo, RMA on 01/23/25 09: 21 UA Ketone Negative Last Edit by Suzie Leonardo, RMA on 01/23/25 09:21 UA Bilirubin 0 mg/dL Last Edit by Suzie Leonardo, RMA on 01/23/25 09:21 UA Glucose 0 mg/dL Last Edit by Suzie Leonardo, A on 01/23/25 09:21 Results Reviewed Results Reviewed: Laboratory Last Values Urine pH (Auto) 7.0 01/23/25 09:20 Specific [place] (Auto) 1.015 01/23/25 09:20 Urine Protein (Auto) 0 mg/dL 01/23/25 09:20 Glucose (UA)(Auto) 0 mg/dL 01/23/25 09:20 Urine Ketones (Auto) Negative 01/23/25 09:20 Urine Blood (Auto) 0 Dannie/uL 01/23/25 09:20 Urine Nitrite (Auto) Negative 01/23/25 09:20 Urine Bilirubin (Auto) 0 mg/dL 01/23/25 09:20 Urine Urobilinogen (Auto) 0.2 mg/dL 01/23/25 09:20 Leukocyte Esterase (Auto) 0 Rebecca/uL 01/23/25 09:20 Assessment & Plan Assessment & Plan Orders: Orders AMB Post Void Residual by ultrasound Today N40.1 - Benign prostatic hyperplasia with lower urinary tract symptoms AMB Urinalysis Automated Today N40.1 - Benign prostatic hyperplasia with lower urinary tract symptoms, Z13.9 - Encounter for screening, unspecified Prostate Specific Antigen 12 Months N40.1 - Benign prostatic hyperplasia with lower urinary tract symptoms Coding CPT Codes Post Residual Void - PVR CPT Code: 21735-Ngib Void Residual by ultrasound ([id number])
== END 2025-01-23 10:17 | disposition home or self-care (01) ==
LOC: HO.HUSH 09:07
PROVIDERS: PCP Internal Medicine; Visit Provider Urology
DX: Z13.9 Encounter for screening, unspecified (principal); N40.1 Benign prostatic hyperplasia with lower urinary tract symptoms

== ENCOUNTER → 2025-01-23 09:07 | Outpatient (BNVA) | payer MEDICARE, OTHER, SELFPAY | PROVIDERS: PCP Internal Medicine; Visit Provider Urology | DX: N40.1 Benign prostatic hyperplasia with lower urinary tract symptoms (principal) | CPT/HCPCS: 51798; 81003 ==